=== PATIENT | male | born 1950 | race Caucasian/White ===

== ENCOUNTER 2016-07-29 19:36 | Emergency (ER) | payer MEDICARE, OTHER ==
[~2016-07-29] VITALS: Ht 177.8 cm; Wt 91.4 kg
[~2016-07-29 19:36] MED LIST: AGM500T PO; ALLO300T2 PO; ATOR20TA54 PO; GEMF600T3 PO; LEVO88TA4 PO; NF-LISIN40 PO; NIAC1TBM PO; PRAV40TA2 PO
--- OUTSIDE RECORDS SUMMARY | 2016-07-29 19:41 | XMS REPORT | Continuity of Care Document ---
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 Name Role Phone NEDA, OSCAR Alvarez MD PCP [phone] Insurance Providers Payer Name Policy Number Subscriber Name Relationship Medicare A And B [id number] Lety Palacio 18 Self / Same As Patient Other1 [id number] Lety Palacio 18 Self / Same As Patient Advance Directives Directive Response Recorded Date/Time Advanced Directives Yes 05/20/15 6:57am Type Living Will 05/20/15 6:57am Problems Active Problems Medical Problem Onset Date Status Carpal tunnel syndrome Unknown Acute Hx of adenomatous colonic polyps Unknown Acute Medications Current Home Medications Medication Dose Units Route Directions Days/Qty Instructions Start Date Lisinopril (Zestril) 40 Mg 40 Mg ORAL Daily 90 04/23/15 Allopurinol 300 Mg 300 Mg ORAL Daily 180 04/23/15 Gemfibrozil (Lopid) 600 Mg 600 Mg ORAL Twice A Day 180 04/23/15 Levothyroxine Sodium (Synthroid) 88 Mcg 88 Mcg ORAL Daily 90 04/23/15 Atorvastatin Calcium 20 Mg 20 Mg ORAL Daily 90 04/23/15 Past Home Medications Medication Directions Ordered Status Niacin/Simvastatin 1 Each Tbmp.24hr, 1 Each Oral Bedtime 04/23/15 Discontinued Pravastatin Sodium 40 Mg Tablet, 40 Mg Oral Daily 04/23/15 Discontinued Social History No social history. Hospital Discharge Instructions No hospital discharge instructions. Plan of Care Prescriptions See Medication Section Functional Status No functional status results. Allergies, Adverse Reactions, Alerts No known allergies. Immunizations No immunization records. Vital Signs No known vital signs results. Results No known relevant diagnostic tests, laboratory data and/or discharge summary. Procedures No known history of procedures. Encounters Encounter Location Arrival/Admit Date Discharge/Depart Date Attending Provider Discharged Recurring [facility] 01/21/16 9:30am 01/21/16 12:00pm OSCAR RED MD
[2016-07-29] MEDS ORDERED: CLPD75T PO (19:53)
[2016-07-29] MEDS ORDERED: NITROGLYCERIN SUBLINGUAL 0.4 MG (NITROQUICK) TABLET SL ONE ×2 (19:56→19:57)
--- NOTE | 2016-07-29 20:00 | NUR ---
Pt given a o.4mg sublingual for chest pain.
[2016-07-29] MEDS ORDERED: NITROGLYCERIN SUBLINGUAL 0.4 MG (NITROQUICK) TABLET SL PRN (20:05)
[2016-07-29] MEDS ORDERED: ASPIRIN 81 MG CHEW (CHILDREN'S ASA) ONE (20:05)
[2016-07-29] MEDS ORDERED: ASPIRIN 81 MG CHEW (CHILDREN'S ASA) PO ONE ×2 (20:05)
--- NOTE | 2016-07-29 20:05 | NUR ---
Pt states that his pain is completely gone at this time
[2016-07-29 20:30] LABS: BASOPHILS % (AUTO) 0 % (0-2); EOSINOPHILS # (AUTO) 0.3 10^3uL; EOSINOPHILS % (AUTO) 2 % (0-4); LYMPHOCYTES # (AUTO) 1.6 X10^3; MEAN CORPUSCULAR HEMOGLOBIN 30.9 PG (26.0-34.0); MEAN CORPUSCULAR HGB CONC 33.6 g/dL (31.0-37.0); MEAN CORPUSCULAR VOLUME 92 FL (80-100); MONOCYTES # (AUTO) 1.3 X10^3; MONOCYTES % (AUTO) 8 % (3-11); NEUTROPHILS % (AUTO) 79 % (51-67); PLATELET COUNT 252 10^3uL (150-450)
[2016-07-29 20:50] LABS: ALBUMIN 4.5 g/dL (3.4-5.0); ALKALINE PHOSPHATASE 98 U/L (38-126); ANION GAP 16.8 MEQ/L (3-15); BUN/CREATININE RATIO 19 (10-20); CALCULATED IONIZED CALCIUM 4.2 mg/dL (3.8-4.6); CREATINE KINASE 96 U/L (55-170); TOTAL PROTEIN 7.8 g/dL (6.4-8.5)
[2016-07-29] MEDS ORDERED: GI COCKTAIL 55 ML UDC PO ONE (21:35)
[2016-07-29] MEDS ORDERED: BELLADONNA/PHENOBARBITAL ELIXIR (DONNATAL) 10 ML UDC ONE (21:45)
[2016-07-29] MEDS ORDERED: MAG HYDROX/AL HYDROX/SIMETH 400-400-40/5 ML (MAG-AL PLUS XS) 30 ML UDC ONE (21:45)
[2016-07-29] MEDS ORDERED: LIDOCAINE 2% VISCOUS 20ML UDC PO ONE (21:45)
--- NOTE | 2016-07-29 22:07 | NUR ---
Pt states that the discomfort to his epigastric area is better after the GI [place]
[2016-07-29 22:10] VITALS: BP 127/75
--- NOTE | 2016-07-30 08:13 | Diagnostic Imaging Report ---
INDICATION: Chest pain, fever. COMPARISON: None available. TECHNIQUE: Frontal and lateral radiograph of the chest dated July 29, 2016 FINDINGS: The cardiac silhouette is within normal limits. No significant pulmonary vascular congestion. The lungs are clear of focal pulmonary opacity. No pleural effusion. No pneumothorax. Postsurgical changes within the right humerus. Scattered osseous degenerative changes without acute osseous abnormality. IMPRESSION: No acute cardiopulmonary abnormality with postsurgical and chronic findings as above. Dictated by: Dictated on workstation # [id number]
== END 2016-07-29 22:20 | disposition home or self-care (01) ==
LOC: ED 19:38
DX: K52.9 Noninfective gastroenteritis and colitis, unspecified (principal); I10 Essential (primary) hypertension
CPT/HCPCS: 36415; 71020; 80053; 82550; 82553; 83880; 84443; 84484; 85025; 85379; 85610; 86140; 93005; 99285; A9270; 93010; 99284

== ENCOUNTER 2016-11-21 09:10 | Day surgery (SDC) | payer MEDICARE, OTHER ==
[~2016-11-21] VITALS: Ht 177.8 cm; Wt 90.5 kg
[2016-11-21] VITALS (7 sets, daily range): BP systolic 138–166; BP diastolic 80–94
[~2016-11-21 09:10] MED LIST changes: +CLPD75T PO; +LACTATED RINGERS 1,000 ML IV SCH; +LIDOCAINE/EPINEPHRINE 1%-1:100,000 (XYLOCAINE) 20ML VIAL ONE; +METO-272 PO; +MUPIROCIN 2% OINT 22 GM (BACTROBAN) TUBE TOP ONE; +OXYMETAZOLINE 0.05% NASAL SPRAY (AFRIN) 15 ML BTL ONE; +OXYMETAZOLINE 0.05% NASAL SPRAY (AFRIN) 15 ML BTL SCH; +SODIUM CHLORIDE FLUSH 3 ML SYR IV SCH
[2016-11-21] MEDS ORDERED: ALFENTANIL 500 MCG/ML (ALFENTA) 5 ML AMP IV ONE (10:47)
[2016-11-21] MEDS ORDERED: PROPOFOL 20 ML IV ONE (10:48)
[2016-11-21] MEDS ORDERED: MIDAZOLAM 2 MG/2 ML (VERSED) VIAL ONE (10:48)
[2016-11-21] MEDS ORDERED: SUCCINYLCHOLINE 20 MG/ML 10 ML VIAL ONE (10:48)
[2016-11-21] MEDS ORDERED: ePHEDrine SULFATE 50 MG/ML 1 ML AMP ONE (11:19)
[2016-11-21] MEDS ORDERED: ONDANSETRON 2 MG/ML (Z0FRAN) 2 ML VIAL ONE (11:29)
[2016-11-21] MEDS ORDERED: DEXAMETHASONE 10 MG/ML (DECADRON) VIAL ONE (11:30)
[2016-11-21] MEDS ORDERED: ACETAMINOPHEN 325 MG TAB (TYLENOL) PO PRN (12:00)
[2016-11-21] MEDS ORDERED: ACETAMINOPHEN/CODEINE 300MG/30 MG (TYLENOL #3) TABLET PO PRN (12:00)
[2016-11-21] MEDS ORDERED: ONDANSETRON 2 MG/ML (Z0FRAN) 2 ML VIAL IV PRN (12:00)
[2016-11-21] MEDS ORDERED: TRIAMCINOLONE ACET 40 MG/ML (KENALOG-40) 1 ML VIAL ONE (12:27)
[2016-11-21] MEDS ORDERED: TRIAMCINOLONE ACET 40 MG/ML (KENALOG-40) 1 ML VIAL IM ONE (13:35)
[2016-11-21] MEDS ORDERED: HYPERTONIC SALINE IRRIGATION 1000 ML BTL IR SCH (21:00)
--- NOTE | 2016-11-22 09:15 | OPERATIVE REPORT ---
DATE OF OPERATION: 11/21/2016 [facility] NO.: [id number] PRE-OPERATIVE DIAGNOSES: Nasal septal deviation, left inferior turbinate hypertrophy, and right inferior turbinate hypertrophy. POST-OPERATIVE DIAGNOSES: Nasal septal deviation, left inferior turbinate hypertrophy, and right inferior turbinate hypertrophy. OPERATIVE PROCEDURE: 1. Septoplasty. 2. Left partial inferior turbinate reduction. 3. Right partial inferior turbinate reduction. SURGEON: Regan Lawson MD ANESTHESIA: General endotracheal INDICATION: This is a 66-year-old male with a history of upper airway obstruction. OPERATIVE FINDINGS: Moderate to severe left-sided nasal septal deviation with bone spur and large left and right inferior turbinates. OPERATIVE NOTE: Following informed consent the patient was taken to the operating room and placed in the supine position. Satisfactory general endotracheal anesthesia was obtained. He was prepped for surgery with Afrin Nasal [place] and 1% lidocaine with epinephrine. SEPTOPLASTY: A left sided hemitransfixion incision was performed followed by elevation of a mucoperichondrial flap. The cartilage knife was used to incise the cartilage and elevate a contralateral mucoperichondrial flap followed by removal of a portion of the quadrilateral cartilage using the swivel knife. The inferior aspect of the perpendicular plate of the ethmoid was trimmed with the Shakir-Estella double action rongeur and a bone spur from posterior was removed with the Chaim forceps. This allowed the flaps to swing back to the midline. Morselized cartilage were replaced between flaps and sutured with 4-0 plain gut suture in a mattress fashion. The hemitransfixion incision was closed with a 4-0 chromic suture. LEFT PARTIAL INFERIOR TURBINATE REDUCTION: The left inferior turbinate was shaved along its inferior and lateral edge using the suction microdebrider removing both soft tissue and bone, decreasing the size of the turbinate by 20%. It was then cauterized with suction electrocautery for hemostasis and then lightly lateralized with the Boies elevator. Afrin packs were then placed in this side of the nose RIGHT PARTIAL INFERIOR TURBINATE REDUCTION: The right inferior turbinate was shaved along its inferior and lateral edge using the suction microdebrider removing both soft tissue and bone, decreasing the size of the turbinate by 20%. It was then cauterized with suction electrocautery for hemostasis and then lightly lateralized with the Boies elevator. Afrin packs were then placed in this side of the nose. Next the middle turbinates were sutured to the midline using a [id number] 4-0 Vicryl suture in a mattress fashion. This medialized the middle turbinates and opened up the nose widely. Both sides of the nose were again irrigated with saline and suctioned until clear. Afrin packs were placed along the floor of the nose and in the middle meatus. The patient was awakened and taken to the recovery room in good condition.
== END 2016-11-21 14:54 | disposition home or self-care (01) ==
LOC: ASC 09:10
PROVIDERS: ATTEND Otolaryngology
DX: J34.2 Deviated nasal septum (principal); J34.3 Hypertrophy of nasal turbinates; J34.89 Other specified disorders of nose and nasal sinuses; I10 Essential (primary) hypertension; I25.10 Atherosclerotic heart disease of native coronary artery without angina pectoris; K21.9 Gastro-esophageal reflux disease without esophagitis; E03.9 Hypothyroidism, unspecified; G47.33 Obstructive sleep apnea (adult) (pediatric); Z79.82 Long term (current) use of aspirin; Z79.02 Long term (current) use of antithrombotics/antiplatelets
CPT/HCPCS: 30130; 30520; A9270; J0330; J1100; J2250; J7120